=== PATIENT | female | born 1985 | race Native Hawaiian/Other Pacific Islander ===

== ENCOUNTER 2018-01-27 02:45 | Emergency (ER) | payer BC ==
[2018-01-27] MEDS ORDERED: Sodium Chloride 0.9% 1,000 ML IV SCH (03:15)
[2018-01-27] MEDS ORDERED: DiphenhydrAMINE 50 mg/ml Inj IVP STA (03:21)
--- NOTE | 2018-01-27 03:21 | ED PDOC ---
HPI: Abdomen <Jc Kolb - Last Filed: 01/27/18 06:51> Chief Complaint (Provider): "im having severe abdominal pain and diarrhea" History Per: Patient History/Exam Limitations: no limitations Onset/Duration Of Symptoms: Days Outside of [place] travel?: No Current Symptoms Are (Timing): Constant Context: Food Severity: Severe Pain Scale Rating Of: 10 Location Of Pain/Discomfort: RLQ, LLQ Quality Of Discomfort: Sharp, Cramping Associated Symptoms: Fever, Nausea, Diarrhea, Loss Of Appetite. denies: Vomiting, Back Pain, Chest Pain, Constipation, Urinary Symptoms Exacerbating Factors: Movement, Food, Walking Alleviating Factors: Rest Last Bowel Movement: Today <Best Bruno - Last Filed: 01/27/18 07:08> Time Seen by Provider: 01/27/18 02:54 Chief Complaint (Nursing): Abdominal Pain Additional Complaint(s): 32 y/o female with history of gastritis diagnosed on endoscopy presents for evaluation of abdominal pain and diarrhea. Pain has been going for several days now without inciting event. It is located in her lower abdomen. Pain is 5/10 at baseline but there are episodes of 10/10. Pain is nonradiating. It is crampy and sharp in character. Exacerbated with PO intake and relieved with rest and defication. She has been having low grade fevers as well, with tmax reaching 100.2 F at home. Has not taken meds. No sick contacts or recent travel or recent abx usage. 6-7 episodes of watery, nonbloody, nonmucoid diarrhea today. Other associated symptoms include nausea as well as urge to vomit during episodes of pain. Denies urinary symptoms, back pain, melena/hematocheiza PMD: [facility] GI: [facility] (recent endscopy showed gastritis, never had colonscopy) ALL: Shrimp (via blood testing, no hx of adverse reaction) Psurghx: no abdominal surgeries FamilyHx: unknown, adopted (Best Bruno) Supervising Attending Note - Supervising Attending Note The Documented history was done by the: Physician Engraver Rubber, Attending Physician The documented physical exam was done by the: Physician Engraver Rubber, Attending Physician The documented procedures were done by the: Physician Engraver Rubber, Attending Physician - Attestation: I have personally seen and examined this patient.: Yes I have fully participated in the care of the patient.: Yes I have reviewed all pertinent clinical information: Yes <Jc Kolb - Last Filed: 01/27/18 06:51> Past Medical History <KennediKenaterrence Moody - Last Filed: 01/27/18 06:51> - Medical History PMH: Gastritis - Surgical History Surgical History: No Surg Hx - Family History Family History: States: Unknown Family Hx - Living Arrangements Living Arrangements: With Family - Social History Current smoker - smoking cessation education provided: No Ex-Smoker (has not smoked in the last 12 months): No Alcohol: None Drugs: Denies <Best Bruno - Last Filed: 01/27/18 07:08> Vital Signs: Last Vital Signs Temp 99.6 F 01/27/18 06:42 Pulse 64 01/27/18 06:42 Resp 17 01/27/18 06:42 BP 124/84 01/27/18 06:42 Pulse Ox 96 01/27/18 06:57 - Home Medications Home Medications: Ambulatory Orders Medication Instructions Recorded Ciprofloxacin HCl [Cipro] 500 mg PO BID #14 tablet 01/27/18 Ciprofloxacin [Cipro] 500 mg PO BID 7 Days tab 01/27/18 Dicyclomine [Dicyclomine HCl] 10 mg PO PRN PRN #20 cap 01/27/18 Dicyclomine [Dicyclomine HCl] 10 mg PO TID #15 cap 01/27/18 Metronidazole [Flagyl] 500 mg PO BID #14 tablet 01/27/18 Metronidazole [Flagyl] 500 mg PO TID 7 Days tablet 01/27/18 Ondansetron ODT [Zofran ODT] 4 mg PO Q8 PRN #12 odt 01/27/18 - Allergies Allergies/Adverse Reactions: Allergies Allergy/AdvReac Type Severity Reaction Status Date / Time shrimp Allergy RASH Verified 01/27/18 02:49 Review of Systems ROS Statement: Except As Marked, All Systems Reviewed And Found Negative <Best Bruno - Last Filed: 01/27/18 07:08> Physical Exam - Reviewed Nursing Documentation Reviewed: Yes Vital Signs Reviewed: Yes - Physical Exam Appears: Positive for: Non-toxic, No Acute Distress, Uncomfortable Head Exam: Positive for: ATRAUMATIC, NORMAL INSPECTION, NORMOCEPHALIC Skin: Positive for: Normal Color, Warm, Dry. Negative for: Diaphoresis, Pallor , Rash Eye Exam: Positive for: EOMI, PERRL. Negative for: Conjunctival injection, Scleral icterus Neck: Positive for: Normal, Painless ROM, Supple Cardiovascular/Chest: Positive for: Regular Rate, Rhythm. Negative for: Gallop , JVD, Tachycardia Respiratory: Positive for: Normal Breath Sounds. Negative for: Decreased Breath Sounds, Accessory Muscle Use, Crackles, Rales, Wheezing, Respiratory Distress Pulses-Dorsalis Pedis (L): 2+ Pulses-Dorsalis Pedis (R): 2+ Pulses-Radial (L): 2+ Pulses-Radial (R): 2+ Gastrointestinal/Abdominal: Positive for: Bowel Sounds (normal), Soft, Tenderness (lower abdominal tenderness), Guarding (voluntary guarding ). Negative for: Distended, Rebound Back: Negative for: L CVA Tenderness, R CVA Tenderness Lymphatic: Negative for: Adenopathy Neurologic/Psych: Positive for: Alert, donor technician II-XII, Oriented. Negative for: Motor/Sensory Deficits <Best Bruno - Last Filed: 01/27/18 07:08> - Laboratory Results Result Diagrams: 01/27/18 03:43 01/27/18 03:43 <Jc Kolb - Last Filed: 01/27/18 06:51> - Laboratory Results Result Diagrams: 01/27/18 03:43 01/27/18 03:43 - ECG O2 Sat by Pulse Oximetry: 96 - Progress Re-evaluation Time: 06:56 Condition: Re-examined, Improved <Best Bruno - Last Filed: 01/27/18 07:08> - Progress ED Course And Treament: gastroenteritis, diverticulitis, IBD, gastritis, infectious diarrhea, food intoxication CBC CMP Blood cx VBG shock panel UA Upreg Stool cx stool O/P Fecal leuks Abd/pelvis CT w IV contrast Meds: Normal saline 1 L bolus zofran 4mg IV Morphine 2mg IV bendryl 50mg IV re-evaluated pt declined morphine, reports improvement with fluids and zofran labs unremarkable CT: Presumed colitis/enteritis/adenitis Mildly thickened borderline dilated appendix as described. Appendicitis cannot be completely excluded. Correlate clinically. Hypodensity at the dome of the liver, not clearly cystic which may be further characterized on a nonurgent basis as clinically indicated. gen surg consult: agrees with significant colitis, unlikely appendicitis, no surgical intervention at this point, recommend pt follow up with her GI. Will d/c pt on course of cipro/flagyl. (Best Bruno) Disposition <Jc Kolb - Last Filed: 01/27/18 06:51> - Patient ED Disposition Is Patient to be Admitted: No - Disposition Disposition: Routine/Home Disposition Time: 07:08 <Best Bruno - Last Filed: 01/27/18 07:08> - Clinical Impression Clinical Impression: Colitis - Disposition Referrals: Kota Fields MD [Medical Doctor] - Condition: GOOD Additional Instructions: VIOLETTE DELUCA, thank you for letting us take care of you today. Your provider was cJ Kolb MD and you were treated for ABD PAIN. The emergency medical care you received today was directed at your acute symptoms. If you were prescribed any medication, please fill it and take as directed. It may take several days for your symptoms to resolve. Return to the Emergency Department if your symptoms worsen, do not improve, or if you have any other problems. Please contact your doctor or call one of the physicians/clinics you have been referred to that are listed on the Patient Visit Information form that is included in your discharge packet. Bring any paperwork you were given at discharge with you along with any medications you are taking to your follow up visit. Our treatment cannot replace ongoing medical care by a primary care provider outside of the emergency department. Thank you for allowing the [facility] team to be part of your care today. If you had an X-Ray or CT scan: A Radiologist will review the ED reading if any change in treatment is needed we will contact you. If you had a blood, urine, or wound culture: It will take several days for the results, if any change in treatment is needed we will contact you. If you had an STI test: It will take 48 hours for the results. Please call after 1 week if you have not heard back. Prescriptions: Ciprofloxacin [Cipro] 500 mg PO BID 7 Days tab Ciprofloxacin HCl [Cipro] 500 mg PO BID #14 tablet Dicyclomine [Dicyclomine HCl] 10 mg PO PRN PRN #20 cap PRN Reason: Diarrhea Dicyclomine [Dicyclomine HCl] 10 mg PO TID #15 cap Metronidazole [Flagyl] 500 mg PO BID #14 tablet Metronidazole [Flagyl] 500 mg PO TID 7 Days tablet Ondansetron ODT [Zofran ODT] 4 mg PO Q8 PRN #12 odt PRN Reason: Nausea/Vomiting Instructions: Diarrhea in Adolescents and Adults
[2018-01-27 03:51] LABS: HEMOGLOBIN 13.1 g/dL (12.0-16.0); MEAN CELL VOLUME 88.1 fl (81.0-99.0); MEAN CORPUSCULAR HEMOGLOBIN 30.8 pg (27.0-31.0); MEAN CORPUSCULAR HGB CONC 34.9 g/dL (33.0-37.0); RBC 4.24 Mil/uL (3.80-5.20); RED CELL DISTRIBUTION WIDTH 13.1 % (11.5-14.5); WHITE BLOOD COUNT 5.9 K/uL (4.8-10.8)
[2018-01-27 03:52] LABS: VENOUS BLOOD GAS BASE EXCESS 1.2 mmol/L (0.0-2.0); VENOUS BLOOD GAS PCO2 44 mmHg (40-60); VENOUS BLOOD GAS PO2 35 mm/Hg (30-55); VENOUS BLOOD PH 7.39 (7.32-7.43)
[2018-01-27 03:55] LABS: ALB/GLOB RATIO 1.2 (1.0-2.1); ALBUMIN 3.8 g/dL (3.5-5.0); ALT/SGPT 14 U/L (9-52); AST/SGOT 20 U/L (14-36); BLOOD UREA NITROGEN 6 mg/dl (7-17); CALCIUM 8.9 mg/dL (8.4-10.2); GFR AFRICAN-AMERICAN > 60; GFR NON-AFRICAN AMERICAN > 60
[2018-01-27] MEDS ORDERED: DiphenhydrAMINE 50 mg/ml Inj ONE (04:30)
[2018-01-27] MEDS ORDERED: Sodium Chloride 0.9% 50 ML IV ONE (04:38)
[2018-01-27] MEDS ORDERED: Iohexol 300 100 ML IJ ONE (04:38)
[2018-01-27 06:43] VITALS: BP 124/84; PULSE 64; RESP 17; TEMP 99.6
[2018-01-27 06:57] VITALS: O2SAT 96
--- NOTE | 2018-01-27 07:01 | CP.PCM.CON ---
History of Present Illness - History of Present Illness History of Present Illness: General Surgery - Dr. Xiao 32 yo F w/ hx of gastritis, presenting with lower abdominal pain x6days. Pt states the pain started last week on Sunday. She describes it as diffuse b/l lower abdominal pain, intermittent, coming about every 5 hours, with varying intensity up to a 10/10 at worst. She had associated watery, non-bloody diarrhea that began yesterday, up to 7-8x during the day. Pt also admits to nausea but denies any vomiting. She denies any Fevers/chills, SOB chest pains, Dysuria, Hematuria. Pt states she was given medication in the ED and currently has no pain. PMH: Gastritis PSH: Endoscopy this year All: shrimp Pt was seen in the ED. Labs with no significant abnormallities. CT IV contrast reviewed which showed appreciable Colitis and a mildly dilated appendix. Review of Systems - Review of Systems All systems: reviewed and no additional remarkable complaints except (as per HPI ) Past Patient History - Past Social History Alcohol: None Drugs: Denies - GASTROINTESTINAL Hx Gastritis: Yes - PSYCHIATRIC Hx Substance Use: No Meds Home Medications: Home Medication List Medication Instructions Recorded Confirmed Type Ciprofloxacin HCl [Cipro] 500 mg PO BID #14 tablet 01/27/18 Rx Ciprofloxacin [Cipro] 500 mg PO BID 7 Days tab 01/27/18 Rx Dicyclomine [Dicyclomine HCl] 10 mg PO PRN PRN #20 cap 01/27/18 Rx Dicyclomine [Dicyclomine HCl] 10 mg PO TID #15 cap 01/27/18 Rx Metronidazole [Flagyl] 500 mg PO BID #14 tablet 01/27/18 Rx Metronidazole [Flagyl] 500 mg PO TID 7 Days tablet 01/27/18 Rx Ondansetron ODT [Zofran ODT] 4 mg PO Q8 PRN #12 odt 01/27/18 Rx Allergies/Adverse Reactions: Allergies Allergy/AdvReac Type Severity Reaction Status Date / Time shrimp Allergy RASH Verified 01/27/18 02:49 - Medications Medications: Current Medications Sodium Chloride (Sodium Chloride 0.9%) 1,000 mls @ 999 mls/hr IV .Q1H1M LUIS Stop: 01/28/18 03:13 Last Admin: 01/27/18 04:06 Dose: 999 mls/hr Physical Exam - Constitutional Appears: No Acute Distress - Head Exam Head Exam: ATRAUMATIC, NORMAL INSPECTION, NORMOCEPHALIC - Eye Exam Eye Exam: Normal appearance - Respiratory Exam Respiratory Exam: NORMAL BREATHING PATTERN. absent: Respiratory Distress - Cardiovascular Exam Cardiovascular Exam: REGULAR RHYTHM - GI/Abdominal Exam GI & Abdominal Exam: Soft, Tenderness (very mild ttp in suprapubic/llq). absent : Distended, Firm, Guarding, Hernia, Rebound, Rigid - Neurological Exam Neurological exam: Alert, Oriented x3 - Psychiatric Exam Psychiatric exam: Normal Affect, Normal Mood - Skin Skin Exam: Dry, Intact Results - Vital Signs Recent Vital Signs: Last Vital Signs Temp 99.6 F 01/27/18 06:42 Pulse 64 01/27/18 06:42 Resp 17 01/27/18 06:42 BP 124/84 01/27/18 06:42 Pulse Ox 96 01/27/18 06:57 - Labs Result Diagrams: 01/27/18 03:43 01/27/18 03:43 Labs: Laboratory Results - last 24 hr 01/27/18 01/27/18 01/27/18 03:43 03:43 03:49 WBC 5.9 RBC 4.24 Hgb 13.1 Hct 37.4 MCV 88.1 MCH 30.8 MCHC 34.9 RDW 13.1 Plt Count 185 pO2 35 VBG pH 7.39 VBG pCO2 44 VBG HCO3 25.0 VBG Total CO2 28.0 VBG O2 Sat (Calc) 53.6 VBG Base Excess 1.2 VBG Potassium 3.7 Glucose 113 H Lactate 1.2 FiO2 21.0 Sodium 136 134.0 Potassium 3.9 Chloride 104 104.0 Carbon Dioxide 23 Anion Gap 13 BUN 6 L Creatinine 0.7 Est GFR ( Amer) > 60 Est GFR (Non-Af Amer) > 60 Random Glucose 115 H Calcium 8.9 Total Bilirubin 0.3 AST 20 ALT 14 Alkaline Phosphatase 52 Total Protein 6.9 Albumin 3.8 Globulin 3.1 Albumin/Globulin Ratio 1.2 Venous Blood Potassium 3.7 - Imaging and Cardiology CT scan - abdomen Status: Image reviewed by me, Report reviewed by me Assessment & Plan - Assessment and Plan (Free Text) Assessment: 32 yo F w/ hx of gastritis, presenting with colitis -CT images reviewed, appendix mildly prominent, no fecalith or inflammatory stranding, prominent colitis most notably in the splenic flexure -Labs WNL, No leukocytosis -Abdominal exam benign -No evidence for acute appendicitis -Clear for discharge from surgical standpoint, instructed pt to f/u with her GI doctor JULIETA Xiao
--- NOTE | 2018-01-27 12:58 | CT ---
Date of service: 01/27/2018 PROCEDURE: CT Abdomen and Pelvis with contrast HISTORY: abdominal pain COMPARISON: None. TECHNIQUE: Contrast dose: 90 mL Omnipaque 300 Radiation dose: Total exam DLP = 325.98 mGy-cm. This CT exam was performed using one or more of the following dose reduction techniques: Automated exposure control, adjustment of the mA and/or kV according to patient size, and/or use of iterative reconstruction technique. FINDINGS: LOWER THORAX: Unremarkable. LIVER: Normal size, contour and attenuation. There is nonspecific low-density 11 mm mass in the dome of the right hepatic lobe. No other mass is identified. There is no biliary dilatation. GALLBLADDER AND BILE DUCTS: Unremarkable. PANCREAS: Unremarkable. No gross lesion or ductal dilatation. SPLEEN: Unremarkable. ADRENALS: Unremarkable. No mass. KIDNEYS AND URETERS: Unremarkable. No hydronephrosis. No solid mass. VASCULATURE: Unremarkable. No aortic aneurysm. BOWEL: There is circumferential mural thickening of the: Sparing the rectum but involving the remainder of the colon consistent with nonspecific colitis. No other abnormal bowel loops are identified. There is no bowel obstruction. APPENDIX: The diameter of the appendix is somewhat increased outside the normal range, up to 8 mm. It is not distended with fluid. This may be related to the concurrent colitis. There is no periappendiceal inflammatory change. Doubt acute appendicitis. PERITONEUM: Trace fluid in cul-de-sac. LYMPH NODES: Shotty subcentimeter lymph nodes are seen medial to the ascending colon. There is no retroperitoneal or pelvic lymphadenopathy. BLADDER: Unremarkable. REPRODUCTIVE: Normal uterus BONES: No acute fracture. OTHER FINDINGS: None. IMPRESSION: Cristina colitis, nonspecific. Increased diameter appendix without fluid distending lumen or periappendiceal inflammatory change. Likely related to colitis. Incidental 11 mm low-density lesion in dome of right hepatic lobe. Otherwise unremarkable examination. The preliminary findings for this examination were reported by [email or web address] at 6:01 a.m. on 01/27/2018. There is concurrence of this report with the preliminary findings.
== END 2018-01-27 07:21 | disposition home or self-care (01) ==
LOC: H.ER 02:45
DX: K52.9 Noninfective gastroenteritis and colitis, unspecified (principal); Z87.891 Personal history of nicotine dependence
CPT/HCPCS: 74177; 80053; 81025; 82803; 85027; 87040; 87045; 87177; 87209; 89055; 96374; 96375; 99283; J1200; J2405; J7030; Q9967

== ENCOUNTER 2018-01-28 18:04 | Emergency (ER) | payer BC ==
[2018-01-28 18:17] VITALS: O2SAT 100
[2018-01-28] MEDS ORDERED: Sodium Chloride 0.9% 1,000 ML IV STA (18:39)
--- NOTE | 2018-01-28 19:01 | ED PDOC ---
HPI: Abdomen Time Seen by Provider: 01/28/18 18:15 Chief Complaint (Nursing): Abdominal Pain Chief Complaint (Provider): Lower abdominal pain History Per: Patient History/Exam Limitations: no limitations Onset/Duration Of Symptoms: Days Outside of [place] travel?: No Current Symptoms Are (Timing): Still Present Additional Complaint(s): 32 yo female with history of gastritis presents for evaluation of lower abdominal pain and diarrhea. PT states she has been having dull pain for 3 days. Pt states yesterday morning it was unbearable and associated with watery diarrhea. Pt states she was seen in ER and sent home with bentyl, cipro, flagyl and zofran. PT states she is eating only cracks and feels like the pain she gets prior to episodes of diarrhea after becoming more frequent and more painful. Pt reports current dull lower abdominal pain, equal bilaterally. Past Medical History Reviewed: Historical Data, Nursing Documentation, Vital Signs Vital Signs: Last Vital Signs Temp 908.5 F H 01/28/18 18:13 Pulse 75 01/28/18 18:13 Resp 17 01/28/18 18:13 BP 115/79 01/28/18 18:13 Pulse Ox 100 01/28/18 19:01 - Medical History PMH: Gastritis - Surgical History Surgical History: Tonsillectomy - Family History Family History: States: Unknown Family Hx - Living Arrangements Living Arrangements: With Family - Social History Current smoker - smoking cessation education provided: No - Immunization History Hx Tetanus Toxoid Vaccination: No Hx Influenza Vaccination: No Hx Pneumococcal Vaccination: No - Home Medications Home Medications: Ambulatory Orders Medication Instructions Recorded Ciprofloxacin HCl [Cipro] 500 mg PO BID #14 tablet 01/27/18 Ciprofloxacin [Cipro] 500 mg PO BID 7 Days tab 01/27/18 Dicyclomine [Dicyclomine HCl] 10 mg PO PRN PRN #20 cap 01/27/18 Dicyclomine [Dicyclomine HCl] 10 mg PO TID #15 cap 01/27/18 Metronidazole [Flagyl] 500 mg PO BID #14 tablet 01/27/18 Metronidazole [Flagyl] 500 mg PO TID 7 Days tablet 01/27/18 Ondansetron ODT [Zofran ODT] 4 mg PO Q8 PRN #12 odt 01/27/18 - Allergies Allergies/Adverse Reactions: Allergies Allergy/AdvReac Type Severity Reaction Status Date / Time shrimp Allergy RASH Verified 01/27/18 02:49 Review of Systems ROS Statement: Except As Marked, All Systems Reviewed And Found Negative Constitutional: Negative for: Fever, Chills Gastrointestinal: Positive for: Nausea, Abdominal Pain, Diarrhea Physical Exam - Reviewed Nursing Documentation Reviewed: Yes Vital Signs Reviewed: Yes - Physical Exam Appears: Positive for: Well, Non-toxic, No Acute Distress Head Exam: Positive for: ATRAUMATIC, NORMAL INSPECTION, NORMOCEPHALIC Skin: Positive for: Normal Color, Warm, DRY Eye Exam: Positive for: Normal appearance ENT: Positive for: Normal ENT Inspection Neck: Positive for: Normal, Painless ROM Cardiovascular/Chest: Positive for: Regular Rate, Rhythm Respiratory: Positive for: Normal Breath Sounds. Negative for: Accessory Muscle Use, Respiratory Distress Gastrointestinal/Abdominal: Positive for: Normal Exam, Soft, Tenderness ( Bilateral lower abdomin ) Back: Positive for: Normal Inspection Extremity: Positive for: Normal ROM Neurologic/Psych: Positive for: Alert, Oriented - Laboratory Results Result Diagrams: 01/28/18 18:55 01/28/18 18:55 - ECG O2 Sat by Pulse Oximetry: 100 Pulse Ox Interpretation: Normal Medical Decision Making Medical Decision Makin - Pt states she does not want 4 mg of morphine. Pt would like only 2 to be given when the pain returns. 1999 - Pending consult by surgical supplies sterilizer. Endorsed to [address] surgical supplies sterilizer aware. Disposition - Clinical Impression Clinical Impression: Abdominal pain, Colitis - Patient ED Disposition Is Patient to be Admitted: Transfer of Care - Disposition Disposition: Transfer of Care Disposition Time: 19:59 Condition: GOOD Forms: [facility] (Kosovan)
[2018-01-28 19:07] LABS: BASO % 0.1 % (0.0-2.0); EOS % 0.1 % (0.0-4.0); HEMOGLOBIN 13.3 g/dL (12.0-16.0); LYMPH % 11.9 % (20.0-40.0); MEAN CELL VOLUME 87.9 fl (81.0-99.0); MEAN CORPUSCULAR HEMOGLOBIN 30.2 pg (27.0-31.0); MEAN CORPUSCULAR HGB CONC 34.4 g/dL (33.0-37.0); MEAN PLATELET VOLUME 9.1 fl (7.2-11.7); MONO # 0.4 K/uL (0.0-0.8); MONO % 5.3 % (0.0-10.0); NEUT # 6.9 K/uL (1.8-7.0); NEUT % 82.6 % (50.0-75.0); NRBC % 0.1 % (0.0-0.0); RBC 4.42 Mil/uL (3.80-5.20); WHITE BLOOD COUNT 8.3 K/uL (4.8-10.8)
[2018-01-28 19:41] LABS: ALB/GLOB RATIO 1.2 (1.0-2.1); ALBUMIN 3.8 g/dL (3.5-5.0); ALT/SGPT 21 U/L (9-52); AST/SGOT 27 U/L (14-36); BLOOD UREA NITROGEN 3 mg/dl (7-17); CALCIUM 9.2 mg/dL (8.4-10.2); GFR AFRICAN-AMERICAN > 60; GFR NON-AFRICAN AMERICAN > 60
[2018-01-28 20:23] LABS: SQUAMOUS EPITHIAL 1 /hpf (0-5); URINE BACTERIA OCC (<OCC); URINE BILIRUBIN NEGATIVE (NEGATIVE); URINE BLOOD MODERATE (NEGATIVE); URINE CLARITY CLEAR (Clear); URINE COLOR YELLOW (YELLOW); URINE GLUCOSE (UA) NEG (Normal); URINE LEUKOCYTE ESTERASE NEG Leu/uL (Negative); URINE PROTEIN NEGATIVE (NEGATIVE); URINE UROBILINOGEN 0.2-1.0 mg/dL (0.2-1.0)
--- NOTE | 2018-01-28 20:29 | ED PDOC ---
- Laboratory Results Result Diagrams: 01/28/18 18:55 01/28/18 18:55 - ECG O2 Sat by Pulse Oximetry: 100 - Progress ED Course And Treament: Case endorsed to song writer from song writer from [place] pending re-eval Patient evaluated by Dr. Nettles, surgical coordinator on-call, who discussed case with Dr. Xiao (who was briefed on case during yesterday's ED consultation) who is still not concerned for appendicitis. Patient cleared from surgical stand point. Advised pain control, follow up with GI as previously instructed. Patient educated on findings, offered admission for pain control but states she would like to try outpatient rx first. Rx Tramadol provided Advised bland diet, liquids. Continue previous medications Follow up GI Return precautions given Disposition - Clinical Impression Clinical Impression: Abdominal pain, Colitis - POA Present On Arrival: None - Disposition Disposition: Routine/Home Disposition Time: 20:59 Condition: GOOD Prescriptions: traMADol [Ultram] 50 mg PO Q8 PRN #12 tab PRN Reason: Pain, Severe (8-10) Instructions: Diarrhea in Adolescents and Adults, Acute Abdomen (Belly Pain) Forms: [facility] (French)
[2018-01-28 21:10] VITALS: RESP 20; TEMP 98.9
[2018-01-28 21:18] VITALS: BP 137/95; PULSE 70
== END 2018-01-28 21:25 | disposition home or self-care (01) ==
LOC: H.ER 18:04
DX: K52.9 Noninfective gastroenteritis and colitis, unspecified (principal)
CPT/HCPCS: 80053; 81003; 81025; 83605; 85025; 87086; 96360; 99284; J7030